=== PATIENT | male | born 2000 | race Caucasian/White ===

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

== ENCOUNTER 2022-02-05 00:21 | Inpatient (IN) ==
[2022-02-05 01:30] LABS: ABS Eosinophils 0.1 10^3/ul (0-0.6); ABS Lymphocytes 1.5 10^3/ul (1.0-4.8); ABS Monocytes 0.8 10^3/ul (0-0.8); ABS Neutrophils 7.2 10^3/ul (1.5-7.7); Eosinophil % 0.8 %; Hematocrit 48 % (42-52); Hemoglobin 16.7 g/dL (14.0-18.0); Lymphocyte % 15.5 %; Mean Corpuscular HGB Conc 35 g/dL (31-36); Mean Corpuscular Hemoglobin 34 pg (27-31); Mean Corpuscular Volume 98 fL (80-94); Mean Platelet Volume 8.2 fL (7.4-10.4); Nucleated Red Blood Cells % 0.1; Platelet Count 251 10^3/uL (150-450); Red Blood Count 4.87 10^6 /uL (4.18-5.48); Red Cell Distribution Width 14 % (10-15); White Blood Count 9.6 10^3/uL (3.5-10.8)
[2022-02-05 01:59] LABS: Albumin 4.7 g/dL (3.2-5.2); Anion Gap 10 mmol/L (2-11); CO2 Carbon Dioxide 23 mmol/L (22-32); Calcium 9.4 mg/dL (8.6-10.3); Chloride 104 mmol/L (101-111); Potassium 3.8 mmol/L (3.5-5.0); Sodium 137 mmol/L (135-145)
[2022-02-05 03:06] LABS: ALT 34 U/L (7-52); AST 51 U/L (13-39); Acetaminophen < 15 mcg/mL; Alcohol, S < 13 mg/dL (<13); Alkaline Phosphatase 92 U/L (35-149); Blood Urea Nitrogen 7 mg/dL (6-24); Globulin 2.3 g/dL (2-4); Glucose 107 mg/dL (70-100); Salicylate < 2.50 mg/dL (<30); eGFR CKD-EPI 128.8 (>60)
[2022-02-05 08:22] LABS: Urine Benzodiazepine Screen None Detected (None Detect); Urine Cannabinoids Screen None Detected (None Detect); Urine Opiates Screen None Detected (None Detect)
[2022-02-05 08:50] LABS: Urine Appearance Clear; Urine Bilirubin Negative (Negative); Urine Blood Negative (Negative); Urine Color Yellow; Urine Glucose Negative (Negative); Urine Ketones Negative (Negative); Urine Nitrite Negative (Negative); Urine Protein Negative (Negative); Urine Specific Gravity 1.008 (1.002-1.030); Urine Urobilinogen Negative (Negative)
[2022-02-05] MEDS ORDERED: Al Hydrox/Mg Hydrox/Simet LIQ 30 ML UDC PO PRN (13:49)
[2022-02-05] MEDS ORDERED: chlorproMAZINE TAB 50 MG Q6H PRN AGITATION PO (14:00)
[2022-02-06 08:21] LABS: HDL Cholesterol 43.6 mg/dL
[2022-02-06] MEDS: Vitamin THERAPEUTIC TAB PO SCH (11:12)
[2022-02-06 16:18] LABS: Vitamin D Total 25(OH) 21.9 ng/mL (20-50)
[2022-02-07] MEDS: Vitamin THERAPEUTIC TAB PO SCH (07:36)
[2022-02-08] MEDS: Vitamin THERAPEUTIC TAB PO SCH (07:35)
[2022-02-08 09:37] VITALS: BP 133/73
== END 2022-02-08 12:54 | disposition home or self-care (01) | DRG 751 ==
LOC: ED 00:21 → BSU 12:17
PROVIDERS: ADMIT Psychiatry & Neurology Addiction Psychiatry; ATTEND Psychiatry & Neurology Psychiatry